=== PATIENT | male | born 1975 ===

== ENCOUNTER 2021-02-07 21:01 | Emergency (ER) | payer OTHER, SELFPAY ==
[2021-02-07 21:05] VITALS: BP 115/85; PULSE 101; RESP 20; TEMP 36.8; O2SAT 98; BMI 36.0
--- NOTE | 2021-02-07 21:09 | ECG_ITS ---
Test Reason : FLU LIKE SYMPTOMS Blood Pressure : / mmHG Vent. Rate : 085 BPM Atrial Rate : 085 BPM P-R Int : 154 ms QRS Dur : 084 ms QT Int : 352 ms P-R-T Axes : 042 024 044 degrees QTc Int : 418 ms Artifact in tracing Normal sinus rhythm Normal ECG No previous ECGs available Referred By: Generic ED Physician Electronically Signed By:GREG PATTERSON
[2021-02-07 21:23] LABS: COVID-19 Test Positive (Negative)
--- NOTE | 2021-02-07 22:47 | ED.GENADULT ---
HPI - General Adult General Chief complaint: General Medical Stated complaint: flu like symptoms Time Seen by Provider: 02/07/21 22:47 Source: patient Mode of arrival: ambulatory History of Present Illness HPI narrative: 45-year-old male, COVID-19 vaccinated with 2nd vaccine completed in July of this year presents with worsening shortness of breath, body aches, chills, sore throat, runny nose for and this morning began experiencing loss of taste and smell. Related Data Allergies Allergy/AdvReac Type Severity Reaction Status Date / Time acetaminophen [From Vicodin] AdvReac Nausea Verified 02/07/21 21:05 hydrocodone [From Vicodin] AdvReac Nausea Verified 02/07/21 21:05 varenicline [From Chantix] AdvReac Anxiety Verified 02/07/21 21:05 Review of Systems Review of Systems: Pertinent positives and negatives as stated in HPI 10 point review of systems is otherwise negative. PMFSH Past Medical History Source: nursing notes reviewed Physical Exam Vital Signs: Vital Signs: Last Vital Signs Temp 98.2 F 02/07/21 21:05 Pulse 101 H 02/07/21 21:05 Resp 20 02/07/21 21:05 BP 115/85 02/07/21 21:05 Pulse Ox 98 02/07/21 21:05 BMI result Body Mass Index 36.0 VITAL SIGNS: Reviewed. GENERAL: Well developed, well nourished, in no acute distress. HEAD: Normocephalic/atraumatic EYES: PERRLA, EOMI NOSE: Nares patent bilateral OROPHARYNX: no oral lesions noted, posterior pharynx clear NECK: Supple, no adenopathy LUNGS: Normal breath sounds. No adventitious sounds or accessory muscle use. SpO2<98> CARDIOVASCULAR: Regular rate and rhythm without noted murmurs ABDOMEN: Soft, non-tender, non-distended with bowel sounds. NEUROLOGIC: Alert and oriented x 4. Course Course Course Narrative: 45-year-old male with history and clinical presentation consistent with COVID 19 viral infection without noted tachypnea or tachycardia and although patient is mildly short of breath he is oxygenating well at 98% on room air. Patient was informed of all results as well instructed on isolation. He is otherwise discharged home in stable condition. Medical Decision Making Lab Data Labs: Lab Results 02/07/21 Range/Units 21:11 COVID-19 (TATE) Positive A (Negative) COVID-19 Clin Com See Note Discharge Plan Discharge Clinical Impression: Lab test positive for detection of COVID-19 virus Patient Disposition: Home, Self-Care Instructions: COVID-19 (Coronavirus Disease 2019) (ED) Additional Instructions: 1. Resume all home medications as prescribed. 2. Remain well hydrated, especially with water. Recommend [id number] Tylenol/ibuprofen as needed for all body aches/fevers/chills. 3. Recommend following up with your primary care provider through telemedicine appointment in the next 2-3 days for re-evaluation. You must isolate according to all city, state, Federal guidelines for COVID-19 positivity. Return to the ER for worsening symptoms.
== END 2021-02-07 23:22 | disposition home or self-care (01) ==
LOC: HO.ED 23:21
PROVIDERS: Emergency Provider Student in an Organized Health Care Education/Training Program
DX: U07.1 COVID-19 (principal); R06.02 Shortness of breath; M79.10 Myalgia, unspecified site; Z79.899 Other long term (current) drug therapy
CPT/HCPCS: 36415; 87635; 93005; 99283

== ENCOUNTER 2021-03-01 13:05 | Emergency (ER) | payer OTHER, SELFPAY ==
--- NOTE | ~2021-03-01 | XR_ITS ---
EXAMINATION: XR CHEST CLINICAL INFORMATION: Chest pain COMPARISON: None TECHNIQUE: Frontal view of the chest was obtained. 1554 hours FINDINGS: Smooth bordered 4 mm nodule in the mid right lower lung projecting over the confluence of the anterior right fifth rib and the posterior eighth rib. No acute airspace disease. No pleural effusion or pneumothorax. Heart size is normal. Cardiac mediastinal contours are normal. No pulmonary vascular congestion. XR/XR chest 1V IMPRESSION: 1. No acute abnormality of chest. 2. Smooth bordered 4 mm nodule right mid lower lung. Likely benign nodule. This can be further assessed with CT
[2021-03-01 15:41] VITALS: BP 126/86; PULSE 96; RESP 20; TEMP 37.1; O2SAT 99; BMI 34.2
--- NOTE | 2021-03-01 15:45 | ECG_ITS ---
Test Reason : cp Blood Pressure : / mmHG Vent. Rate : 085 BPM Atrial Rate : 085 BPM P-R Int : 154 ms QRS Dur : 088 ms QT Int : 338 ms P-R-T Axes : 070 046 053 degrees QTc Int : 402 ms Normal sinus rhythm Normal ECG When compared with ECG of 07-FEB-2021 21:18, No significant change was found Referred By: Generic ED Physician Electronically Signed By:GREG PATTERSON
[2021-03-01] MEDS: Aspirin 81 MG TAB.CHEW PO (15:47)
== END 2021-03-01 21:43 | disposition left against medical advice (07) ==
PROVIDERS: Emergency Provider Emergency Medicine; PCP Internal Medicine
DX: R07.9 Chest pain, unspecified (principal); R91.8 Other nonspecific abnormal finding of lung field; Z86.16 Personal history of COVID-19
CPT/HCPCS: 71045; 93005; 99283

== ENCOUNTER 2023-05-14 17:06 | Emergency (ER) | payer OTHER, SELFPAY ==
--- NOTE | ~2023-05-14 | US_ITS ---
EXAMINATION: US SCROTUM CLINICAL INFORMATION: Left testicular pain.. COMPARISON: None available. TECHNIQUE: A sonogram of the scrotum was performed assessing rendon-scale appearance and color Doppler flow. Spectral Doppler analysis of the arterial and venous flow were performed in the testes bilaterally. FINDINGS: RIGHT: Right testicle measures 4.6 x 2.3 x 3.4 cm, volume 19 mL. No focal testicular parenchymal lesions are visualized. Spectral Doppler analysis of the arterial and venous flow is normal in the right testis. Right epididymal head is normal in size. There is a right epidural head cysts measuring 0.3 x 0.1 x 0.3 cm. No right hydrocele or varicocele is seen. Right epididymal Doppler flow is normal. LEFT: Left testicle measures 4.2 x 2.6 x 3.1 cm, volume 18 mL. No focal testicular parenchymal lesions are visualized. Spectral Doppler analysis of the arterial and venous flow is normal in the left testis. Left epididymal head is normal in size. There is a left epididymal head calcification measuring 0.1 x 0.09 x 0.14 cm. No left hydrocele or varicocele is seen. Left epididymal Doppler flow is normal. US/US scrotum IMPRESSION: 1. Small right epididymal head cyst. Otherwise both testes are unremarkable. 2. There is no hydrocele or varicocele.
--- NOTE | ~2023-05-14 | US_ITS ---
EXAMINATION: US SCROTUM CLINICAL INFORMATION: Left testicular pain.. COMPARISON: None available. TECHNIQUE: A sonogram of the scrotum was performed assessing rendon-scale appearance and color Doppler flow. Spectral Doppler analysis of the arterial and venous flow were performed in the testes bilaterally. FINDINGS: RIGHT: Right testicle measures 4.6 x 2.3 x 3.4 cm, volume 19 mL. No focal testicular parenchymal lesions are visualized. Spectral Doppler analysis of the arterial and venous flow is normal in the right testis. Right epididymal head is normal in size. There is a right epidural head cysts measuring 0.3 x 0.1 x 0.3 cm. No right hydrocele or varicocele is seen. Right epididymal Doppler flow is normal. LEFT: Left testicle measures 4.2 x 2.6 x 3.1 cm, volume 18 mL. No focal testicular parenchymal lesions are visualized. Spectral Doppler analysis of the arterial and venous flow is normal in the left testis. Left epididymal head is normal in size. There is a left epididymal head calcification measuring 0.1 x 0.09 x 0.14 cm. No left hydrocele or varicocele is seen. Left epididymal Doppler flow is normal. US/US scrotum doppler IMPRESSION: 1. Small right epididymal head cyst. Otherwise both testes are unremarkable. 2. There is no hydrocele or varicocele.
--- NOTE | 2023-05-14 17:23 | ED.GENADULT ---
HPI - General Adult General Chief complaint: Urogenital-Male Stated complaint: testicular torsion - referred by UC Time Seen by Provider: 05/15/23 00:06 History of Present Illness HPI narrative: The patient says that 2-3 weeks ago he noticed that his left testicle seemed to be riding higher than it usually does. It was somewhat uncomfortable. He went to see his primary care doctor who referred him to an urgent care center today. From the urgent care center he was referred to the emergency room. The patient says that 2 or 3 weeks ago he had a weaker than usual urinary stream but this has resolved. No dysuria, urgency, or frequency. He has been having problems with chronic back pain recently. Related Data Allergies Allergy/AdvReac Type Severity Reaction Status Date / Time acetaminophen [From Vicodin] Allergy Vomiting Verified 05/14/23 17:25 hydrocodone [From Vicodin] Allergy Vomiting Verified 05/14/23 17:25 Review of Systems Review of Systems: Yes all other systems are reviewed and are negative PMFSH Social History Social History Advance Directives: No Advance Directives Information Provided: Yes Physical Exam ED Vital Signs: Vital Signs - 24 hr 05/14/23 17:26 05/14/23 23:24 05/14/23 23:38 Temperature 98.5 F 97.5 F Pulse Rate 73 63 68 Respiratory Rate 16 18 16 Blood Pressure 155/92 H 130/77 153/90 H Pulse Oximetry 98 98 96 Oxygen Delivery Method Room Air Room Air Room Air 05/15/23 00:41 Temperature 98.5 F Pulse Rate 68 Respiratory Rate 16 Blood Pressure 153/90 H Pulse Oximetry 96 Oxygen Delivery Method Room Air BMI result Body Mass Index 33.5 Const Other: Awake and alert. He is a 47-year-old male who does not appear in obvious discomfort or distress. HENMT Other: Face is symmetrical. Mucous membranes moist Eyes Other: Pupils are round equal, conjunctivae clear, extraocular movements are intact Neck Other: No JVD Resp Effort & Inspection: normal respiratory effort Auscultation: clear to auscultation bilaterally Cardio Rate: regular rate Rhythm: regular rhythm Heart sounds: S1 normal heart sound present and S2 normal heart sound present GI Other: Abdomen is soft and nontender Other: The patient is an uncircumcised male. The left testicle appears to be high riding. The testicle does not seem swollen. The scrotum is not swollen. No marked tenderness. Cremasteric reflexes present on both sides. Skin Other: Skin is dry and unremarkable Neuro Other: The patient is awake, alert, pleasant, cooperative. Mental status is normal. Gait is normal. Grossly neurologically intact. Extrem Other: No peripheral edema Course Course Course Narrative: This is an RME: Additional HPI, ROS, PE not included below will be deferred to primary provider. This is a 10-mp[age]-oty-male, with a past medical history of anxiety, who presents emergency department complaints of cloudy urine, and left testicular discomfort x2 weeks. Unable to visualize area secondary to limited privacy in triage. Plan: Urine, ultrasound Medical Decision Making Medical Decision Making MDM Narrative: The patient is a 47-year-old male who presents for left-sided testicular discomfort and a high-riding left testicle that has been present for at least several days. Clinically he has a left-sided high-riding testicle which does not seem markedly swollen or tender. There is some mild tenderness. Cremasteric reflex on both sides is intact. An ultrasound shows no signs of torsion or other abnormality. His urinalysis is clean. I think he may be discharged to follow up with Urology. Lab Data Labs: Lab Results 05/14/23 Range/Units 18:44 Urine Color Yellow Urine Appearance Clear Urine pH 6.0 (5.0-9.0) Ur Specific Shields <= 1.005 (1.005-1.025) Urine Protein Negative (Neg-Trace) mg/dL Urine Glucose (UA) Negative (Negative) mg/dL Urine Ketones Negative (Negative) mg/dL Urine Blood Negative (Negative) Urine Nitrite Negative (Negative) Ur Leukocyte Esterase Negative (Negative) Discharge Plan Discharge Clinical Impression: Left testicular pain Patient Disposition: Home, Self-Care Instructions: Testicle Pain (ED) Additional Instructions: Your ultrasound shows good blood flow to both of your testicles. I do not have a good explanation for your left testicular symptoms but there does not seem to be anything acutely dangerous at work. Please contact the urology office (Dr. Thomas's office) to arrange further evaluation. You may use ibuprofen and acetaminophen as needed for pain. Return to the emergency room if worse. Referrals: Juan Pablo Thomas MD [Physician] - (left testicle pain, high riding left testicle, normal ultrasound) Interventions: ED Discharge Assessment Last Done: 05/15/23 00:41 Discharge Date/Time: 05/15/23 00:43
[2023-05-14 17:26] VITALS: BP 155/92; PULSE 73; RESP 16; TEMP 36.9; O2SAT 98; BMI 33.5
[2023-05-14 18:54] LABS: Appearance Urine Clear; Color Urine Yellow; Glucose Urine UA Negative (Negative); Leukocyte Esterase Urine Negative (Negative); Nitrite Urine Negative (Negative); Specific Gravity - Urine <= 1.005 (1.005-1.025); Urine Blood Negative (Negative); Urine Ketones Negative (Negative); Urine Protein Negative (Neg-Trace)
[2023-05-14 23:24] VITALS: BP 130/77; PULSE 63; RESP 18; TEMP 36.4; O2SAT 98
[2023-05-14 23:38] VITALS: BP 153/90; PULSE 68; RESP 16; O2SAT 96
[2023-05-15 00:41] VITALS: BP 153/90; PULSE 68; RESP 16; TEMP 36.9; O2SAT 96
== END 2023-05-15 00:43 | disposition home or self-care (01) ==
PROVIDERS: Physician Assistant Medical; Emergency Provider Emergency Medicine
DX: N50.812 Left testicular pain (principal); R82.90 Unspecified abnormal findings in urine
CPT/HCPCS: 76870; 81003; 93975; 99284

== ENCOUNTER 2023-11-18 12:58 | Outpatient (REF) | payer OTHER, SELFPAY ==
[2023-11-18 16:35] LABS: Urine Cytology See Pathology rpt
== END 2023-11-18 12:59 | disposition home or self-care (01) ==
LOC: HO.LNP 12:58
PROVIDERS: PCP Internal Medicine; Visit Provider Nurse Practitioner Family
DX: R31.29 Other microscopic hematuria (principal); N50.82 Scrotal pain; N50.3 Cyst of epididymis; N52.9 Male erectile dysfunction, unspecified; R10.31 Right lower quadrant pain; R10.32 Left lower quadrant pain; F17.290 Nicotine dependence, other tobacco product, uncomplicated; Z72.89 Other problems related to lifestyle
CPT/HCPCS: 81003; 88112; 99202

== ENCOUNTER 2023-11-18 12:58 | Outpatient (AMB) | payer SELFPAY ==
--- NOTE | 2023-11-18 13:05 | A.OFFVIS_ITS ---
Intake Visit Reasons: scrotal pain Intake Note: New Patient presents for initial visit for scrotal pain Urology Medications: sildenafil Blood Thinner: none Comic Illustrator Required: No Accompanied by: Unknown Allergies acetaminophen [From Vicodin] Allergy (Verified 11/18/23 13:26) Vomiting hydrocodone [From Vicodin] Allergy (Verified 11/18/23 13:26) Vomiting Medication List - Last Reconciled 11/18/23 by KWASI Ocasio albuterol sulfate mg inhalation Q4H PRN betamethasone dipropionate 0.05% topical BID PRN cyclobenzaprine 5 - 10 mg PO BEDTIME PRN diclofenac sodium 75 mg PO BID fluocinonide 0.05% appl topical BID naproxen 500 mg PO BID ondansetron HCl 4 mg PO Q8H PRN sildenafil (pulm.hypertension) 20 mg PO tacrolimus 0.1% topical BID PRN HPI Comments Details: Christian is a very pleasant 48-year-old male patient of . He has a past medical history of anxiety and depression. He presents to the office today as a new patient for ongoing scrotal issues, microscopic hematuria in the setting of nicotine dependence/vapping, and erectile dysfunction. In discussion with the patient today he reports a longstanding history of scrotal pain since the age of approximately 16 years old. He reports at times he feels scrotal issues subside however more frequently has been experiencing ongoing left-sided scrotal pain. He reports noting left testicle sits higher than the right testicle. In review of patient's chart it appears scrotal ultrasound was ordered and performed. These results were reviewed with the patient today. Small right epididymal head cyst. Otherwise both testes are unremarkable. There is no hydrocele or varicocele seen. In assessment of the patient today the penis is uncircumcised small right-sided epididymal head cyst was palpated otherwise no open areas, lesions, and or masses palpated. Deep inguinal pain noted upon palpation today. We discussed further treatment options. Patient discusses his anxiety regarding needles and or surgery. In office urinalysis results reviewed with the patient today. Microscopic hematuria noted. We discussed potential causes of microscopic hematuria as well as further workup to include imaging, urine cytology, and in office cystoscopy. He does report an 8 year history of vaping. He otherwise denies any known workplace chemical exposure. He also was inquiring fertility workup however would like to manage his ongoing scrotal pain at this time as he feels this is bothersome. He also notes issues with his urinary stream. He denies incontinence, nocturia, hematuria, dysuria, foul smelling urine, flank pain, fever, and or chills. He discusses at length his ongoing medical issues with chronic back pain. He discusses noting upon initiation of antidepressant medications he has been experiencing issues with obtaining and maintaining his erections. We discussed side effects of antidepressants. We discussed further erectile dysfunction treatment options as well as further workup. He otherwise offers no other issues or concerns at this time. Review of Systems Const All systems reviewed & are unremarkable except as noted in HPI and below Physical Exam Const General: cooperative, healthy appearing, comfortable, no acute distress, well developed, alert and awake Nutritional Appearance: overweight Orientation/consciousness: patient oriented x3 Limitations: no limitations HEENT Head: Yes normal to inspection, Yes normocephalic and Yes atraumatic Ears: hearing grossly normal bilaterally Eyes General: appearance normal, both eyes and all related structures Neck Neck: Yes normal visual inspection and Yes trachea midline Chest Chest palpation & inspection: normal inspection of the chest Resp Effort & Inspection: normal respiratory effort and able to speak in complete sentences Cardio Rate: regular rate GI Inspection: Yes normal to inspection General: Yes no CVA tenderness Back/Spine/Pelvis Back: no CVA tenderness Skin General skin exam: no rashes or lesions noted Neuro General: patient oriented x3 Extrem General: Yes normal to inspection Psych Appearance: grossly normal and well kempt Mental Status: mental status grossly normal Speech and movement: Normal speech and movement present and Clear speech present Affect: normal affect Attitude: cooperative Thought process: Normal thought process present Thought content: Normal thought content present Insight: Fair insight present (Psych) Judgement: Fair judgement present (Psych) Results AMB Urinalysis, Automated UA Leukoctes 0 Dorothy/uL Last Edit by Cuca Underwood on 11/18/23 13:32 UA Nitrite Last Edit by Cuca Underwood on 11/18/23 13:32 UA Urobilinogen 0.2 mg/dL Last Edit by Cuca Underwood on 11/18/23 13:32 UA Protein 15 mg/dL Last Edit by Cuca Underwood on 11/18/23 13:32 UA pH 5.5 Last Edit by Cuca Underwood on 11/18/23 13:32 UA Blood 10 Brian/uL Last Edit by Cuca Underwood on 11/18/23 13:32 UA Specific Carlisle 1.030 Last Edit by Cuca Underwood on 11/18/23 13:32 UA Ketone Last Edit by Cuca Underwood on 11/18/23 13:32 UA Bilirubin 2 mg/dL Last Edit by Cuca Underwood on 11/18/23 13:32 UA Glucose 0 mg/dL Last Edit by Cuca Underwood on 11/18/23 13:32 Results Reviewed Results Reviewed: Laboratory Last Values Urine pH (Auto) 5.5 11/18/23 13:10 Specific [place] (Auto) 1.030 11/18/23 13:10 Urine Protein (Auto) 15 mg/dL 11/18/23 13:10 Glucose (UA)(Auto) 0 mg/dL 11/18/23 13:10 Urine Blood (Auto) 10 Brian/uL 11/18/23 13:10 Urine Bilirubin (Auto) 2 mg/dL 11/18/23 13:10 Urine Urobilinogen (Auto) 0.2 mg/dL 11/18/23 13:10 Leukocyte Esterase (Auto) 0 Dorothy/uL 11/18/23 13:10 Date of Service: 05/14/23 EXAMINATION: US SCROTUM FINDINGS: RIGHT: Right testicle measures 4.6 x 2.3 x 3.4 cm, volume 19 mL. No focal testicular parenchymal lesions are visualized. Spectral Doppler analysis of the arterial and venous flow is normal in the right testis. Right epididymal head is normal in size. There is a right epidural head cysts measuring 0.3 x 0.1 x 0.3 cm. No right hydrocele or varicocele is seen. Right epididymal Doppler flow is normal. LEFT: Left testicle measures 4.2 x 2.6 x 3.1 cm, volume 18 mL. No focal testicular parenchymal lesions are visualized. Spectral Doppler analysis of the arterial and venous flow is normal in the left testis. Left epididymal head is normal in size. There is a left epididymal head calcification measuring 0.1 x 0.09 x 0.14 cm. No left hydrocele or varicocele is seen. Left epididymal Doppler flow is normal. IMPRESSION: 1. Small right epididymal head cyst. Otherwise both testes are unremarkable. 2. There is no hydrocele or varicocele. Assessment & Plan Assessment & Plan (1) Microscopic hematuria: Code(s): R31.29 - Other microscopic hematuria Category: Medical (2) Scrotal pain: Code(s): N50.82 - Scrotal pain Category: Medical (3) Epididymal cyst: Code(s): N50.3 - Cyst of epididymis Category: Medical (4) Current every day vaping: Code(s): Z72.89 - Other problems related to lifestyle Category: Social Hx (5) Deep inguinal pain: Code(s): R10.30 - Lower abdominal pain, unspecified Category: Medical Plan In office urinalysis results reviewed with the patient today; as noted above; will send for urine cytology. We discussed at length potential causes of microscopic hematuria as well as further workup to include CT urogram, cytology, in office cystoscopy; patient will think about this. Start Mobic as discussed and prescribed. Discussed importance of groin stretching we reviewed exercises to assist with groin stretching. We discussed further assessment evaluation of infertility with in office semen analysis verses fellows kit; patient would like to address ongoing scrotal discomfort first Discussed bladder triggers/irritants. We discussed further treatment options for erectile dysfunction as well as fu rther workup. Follow-up in 1-3 months; or sooner with any issues, concerns, and or questions. Orders: Orders AMB Urinalysis Automated Today Z13.9 - Encounter for screening, unspecified Medications: New meloxicam 15 mg PO DAILY 30 days 30 tabs 0RF R10.31 - Right lower quadrant pain, R10.32 - Left lower quadrant pain Patient Instructions: The patient had an opportunity to ask questions regarding the treatment plan. All questions were answered. Physical exam, labs, and imaging were discussed and reviewed in detail. As well as risks, benefits, and discussion of treatment choices. No major barriers to understanding were identified. The patient expressed understanding and agreement with the above treatment plan. The patient was made aware they should contact our office by phone for worsening of their current condition, the appearance of new symptoms, or with any questions or concerns. Compliance is encouraged with any medications and follow up testing that is ordered. It is a privilege to be allowed the opportunity to participate in? your urological care.? Again, if you have any questions or concerns If you have any questions or concerns please do not hesitate to contact me. The office is [phone]. This note is constructed using voice recognition software. While every effort has been made to ensure accuracy it account manager errors may have been included. Yours sincerely, KWASI Ocasio Coding Level of Care Code New Pt Level 4 (38978) Diagnoses Microscopic hematuria R31.29 Scrotal pain N50.82 Epididymal cyst N50.3 Current every day vaping Z72.89 Deep inguinal pain R10.30
== END 2023-11-18 13:53 | disposition home or self-care (01) ==
PROVIDERS: PCP Internal Medicine; Visit Provider Nurse Practitioner Family
DX: R31.29 Other microscopic hematuria (principal); N50.82 Scrotal pain; N50.3 Cyst of epididymis; Z72.89 Other problems related to lifestyle; R10.30 Lower abdominal pain, unspecified; Z13.9 Encounter for screening, unspecified
CPT/HCPCS: 99204